=== PATIENT | female | born 1970 | race Caucasian/White ===

== ENCOUNTER 2017-07-14 09:49 | Observation (INO) ==
[2017-07-14] MEDS ORDERED: LR 1,000 ML IV SCH (10:15)
[2017-07-14 10:31] VITALS: TEMP 97.3
[2017-07-14 10:36] VITALS: BMI 31.5
[2017-07-14] MEDS ORDERED: IOHEXOL 300mg/ml 100ml INJECTION ONE (11:22)
[2017-07-14] MEDS ORDERED: SALINE FLUSH 10ml SYRINGE ONE (11:22)
--- NOTE | 2017-07-14 12:41 | CT Scan Report ---
Indication: RLQ PAIN PROCEDURE: CT abdomen pelvis w con: Encounter: Initial Comparison: None Technique: Axial CT images were performed through the abdomen and pelvis after the administration of intravenous contrast. Coronal and sagittal two-dimensional reformats. Automated Exposure Control and Iterative Reconstruction dose reducing techniques were utilized. Contrast: Omnipaque 300 99 mL Findings: The lung bases are clear. The liver is normal. The gallbladder is normal. The spleen is normal. The pancreas and adrenal glands are normal. Horseshoe kidney. No renal stone disease or hydronephrosis appreciated. No abdominal or pelvic lymphadenopathy. Changes of prior right inguinal hernia repair. The bladder is normal. Bilateral ovarian cystic lesions. These measure up to 5.2 cm on the left and 3.8 cm on the right. The cervix is mildly prominent. No free fluid. No evidence of a bowel obstruction. The appendix is normal. Impression: 1. No evidence of acute appendicitis. 2. Prominent bilateral ovarian cystic lesions and prominence of the cervix. Recommend dedicated pelvic ultrasound for further evaluation. 3. Horseshoe kidney. .
--- NOTE | 2017-07-14 15:58 | Ultrasound Report ---
Indication: R/O OVARIAN CYST PROCEDURE: US pelvic complete: Encounter: Initial Comparison: CT abdomen and pelvis dated July 14, 2017 FINDINGS: Transabdominal pelvic imaging was performed. The uterus measures 7.3 x 3.7 x 5 cm. The parenchyma is homogeneous without fibroids. The endometrial stripe measures 5 mm in thickness. There is no evidence of focal endometrial mass. No cervical masses seen. Both ovaries are identified. There is a prominent simple cyst in the left ovary measuring 3.8 x 3.3 x 3.3 cm in size. This has no internal complexity or vascularity. The right ovary shows a 2.4 x 1.5 x 1.5 cm probable hemorrhagic cyst. Adjacent to the right ovary is a fluid-filled tubular structure measuring 1.1 cm in diameter suspicious for a hydrosalpinx. Doppler flow is seen to both ovaries. No free fluid identified. Impression: Findings of a right-sided hydrosalpinx. .
[2017-07-14 16:15] VITALS: BP 130/73; PULSE 74; RESP 16; O2SAT 99
--- NOTE | 2017-07-14 19:20 | Consultation ---
DATE OF CONSULTATION 07/14/2017 HISTORY OF PRESENT ILLNESS This patient is 47 years old. The patient states that she experienced the onset of some right-sided back pain at around 0400 hours on 07/14/2017. This back pain did radiate around to the right lower quadrant of the abdomen. The patient had some right lower quadrant abdominal pain at this time. The patient then later developed some left lower back pain. The patient was admitted to [facility] for further evaluation. The patient states that the right lower quadrant abdominal pain has now subsided and largely resolved. The patient has had no recent nausea or vomiting. She has had no recent diarrhea. The patient has some occasional constipation. She did take some Senokot on the evening of 07/12/2017 and did have some good results from using the Senokot. She is not having any further right lower quadrant abdominal pain at the present time. PAST MEDICAL HISTORY PREVIOUS OPERATIONS 1. Right inguinal hernia repair in 1985 at [facility] at [place], [place]. 2. Diagnostic laparoscopy, hysteroscopy and dilation and curettage on [address] Avelina Magallanes at [facility] at [place], [place]. Postoperative diagnoses were bilateral hydrosalpinx, pelvic adhesive disease and uterine polyp. Specimens from the dilation and curettage showed a hyperplastic endometrial polyp with simple hyperplasia and focal complex hyperplasia without atypia. There was no malignancy seen. PHYSICAL EXAMINATION VITAL SIGNS: Temperature is 97.3 degrees Fahrenheit temporal. Pulse is 66. Respiratory rate is 18. Blood pressure is 138/75. Oxygen saturation is 98% on room air. Height is 1.57 meters. Weight is 78.2 kg. BMI is 31.5 kg/m2. ABDOMEN: There are no old incision scars. There are no abdominal masses. The abdomen is soft and nontender in all four quadrants at the present time. BACK: There is no right costovertebral angle tenderness. There is no left costovertebral angle tenderness. LABORATORY DATA White blood cell count is 6200 at 1019 hours today. Hemoglobin is 14.1. Hematocrit is 42.8. Total bilirubin is 0.3. AST and ALT are normal. Alkaline phosphatase is mildly elevated at 140. IMAGING DATA The patient did undergo a CT scan of the abdomen and pelvis with IV contrast on 07/14/2017 at [facility]. The gallbladder appears normal. There is no renal stone disease. There is no abdominal or pelvic lymphadenopathy. The appendix appears completely normal. There is no evidence of any acute appendicitis. The patient does have bilateral ovarian cystic lesions on the right and left sides. The patient does have a horseshoe kidney. The patient did undergo a pelvic ultrasound on 07/14/2017 at [facility]. This shows a simple cyst at the left ovary. There is a probable hemorrhagic cyst at the right ovary. There is also a fluid-filled tubular structure adjacent to the right ovary which is suspicious for hydrosalpinx. IMPRESSION 1. Acute right lower quadrant abdominal pain which has now resolved. There is no evidence of any acute appendicitis or any type of bowel obstruction on CT scan of the abdomen and pelvis performed today. 2. Back pain. 3. Bilateral ovarian cysts. 4. Horseshoe kidney. 5. Bilateral hydrosalpinx. 6. Pelvic adhesive disease. RECOMMENDATION 1. Continued evaluation and treatment of the bilateral ovarian cysts and the bilateral hydrosalpinx and the pelvic adhesive disease by the gynecology service. 2. No further evaluation of the right lower quadrant abdominal pain since this has now resolved. 3. No need for any operative intervention by the general surgery service at the present time. [place]
== END 2017-07-14 17:10 | disposition home or self-care (01) ==
LOC: SRG
PROVIDERS: ADMIT Obstetrics & Gynecology; ATTEND Obstetrics & Gynecology